=== PATIENT | female | born 2000 | race Caucasian/White ===

== ENCOUNTER → 2021-11-11 | Emergency (ER) | payer MEDICAID ==
[~2021-11-11] VITALS: Ht 162.6 cm; Wt 68.2 kg
[~2021-11-11] MED LIST: PRED10TA PO; predniSONE 20 mg tablet PO ONE
[2021-11-11 20:44] VITALS: BP 119/78
== END | disposition home or self-care (01) ==
LOC: ER 20:24
DX: L23.7 Allergic contact dermatitis due to plants, except food (principal); Z79.899 Other long term (current) drug therapy
CPT/HCPCS: 99283; J7512

== ENCOUNTER 2024-06-15 20:29 | Emergency (ER) | payer MEDICAID ==
[~2024-06-15] VITALS: Ht 162.6 cm; Wt 72.6 kg
[~2024-06-15 20:29] MED LIST changes: -predniSONE 20 mg tablet PO ONE
[2024-06-15 20:37] VITALS: BP 150/89; PULSE 107; RESP 18; O2SAT 98
[2024-06-15] MEDS: LIDOcaine 1% W/epiNEPHrine 1:100,000 20ml vial SQ ONE (21:12)
[2024-06-15] MEDS: TETanus/Pertussis (Acell)/Diphther VAC/PF (Tdap-Adult) 0.5ml syringe IMVAC ONE (21:33)
[2024-06-15 21:53] VITALS: TEMP 98.5
== END 2024-06-15 21:54 | disposition home or self-care (01) ==
LOC: ER 20:29
DX: S41.112A Laceration without foreign body of left upper arm, initial encounter (principal); Z79.899 Other long term (current) drug therapy; W45.8XXA Other foreign body or object entering through skin, initial encounter; Y93.89 Activity, other specified; Y92.89 Other specified places as the place of occurrence of the external cause; Y99.8 Other external cause status
CPT/HCPCS: 12002; 90471; 90715; 99283; J7030; A6258; A6446; A6449